=== PATIENT | female | born 1930 | race Caucasian/White ===

== ENCOUNTER 2016-09-16 07:35 | Day surgery (SDC) | payer OTHER ==
[2016-09-16 08:02] VITALS: BMI 21.4
[2016-09-16] MEDS ORDERED: PROPOFOL 20 ML ONE ×2 (08:28)
[2016-09-16 10:27] VITALS: TEMP 97.8
[2016-09-16 12:32] VITALS: BP 148/60; PULSE 73
--- NOTE | 2016-09-17 12:36 | PATH ---
Surgical Pathology Report Patient Name: HARJEET HAGAN [facility]. Rec. #: [id number] /Age/Gender: 1930 (Age: 86) / F Account: [id number] Location: U-ENDOSCOPY Taken: 09/16/2016 Received: 09/16/2016 Reported: 09/17/2016 Physicians: Dao Almanza Specimen(s) Received A: BX EROSION PREPYLORIC B: BX PROXIMAL ANTRAL POSTERIOR WALL 6X8 CM. ULCERATED MASS Clinical History Weight loss, GERD Proximal antral posterior wall 6 x 8 cm ulcerated mass Final Diagnosis A. 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 NO DYSPLASIA OR CARCINOMA IDENTIFIED. Immunostain for H. pylori is negative. B. 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 Immunostain for H. pylori is negative. Comment: Assay for HER-2/edward is pending, and report will follow. This case was discussed with Dr. Antonio Perez and Dr. Rosalino Lozano on September 17, 2016. Electronically Signed Naga Almazan M.D. Addendum Reported: 09/19/2016 Addendum Diagnosis Results of Her2 (IHC) studies performed on block "B" at [place], [place] ([id number]) is as follows: Her2 IHC (EP3 from [employer], formerly known as [id number], using [employer] Polymer Refine detection kit): 0 NEGATIVE Positive and negative controls (internal if applicable) show appropriate results. Naga Almazan M.D. Gross Description A. Received in formalin, labeled "biopsy prepyloric erosion" is a merrill, irregular portion of soft tissue measuring 0.2 cm. in greatest dimension. The specimen is submitted in toto in one cassette. B. Received in formalin, labeled "biopsy proximal antral posterior wall" are 8 merrill, irregular portions of soft tissue averaging 0.2 cm. in greatest dimension. The specimens are submitted in toto in one cassette. 09/16/201609/16/2016
== END 2016-09-16 11:25 | disposition home or self-care (01) ==
LOC: JASU-ENDO 07:35
PROVIDERS: ATTEND Internal Medicine Gastroenterology
PROC: 0DB68ZX Excision of Stomach, Via Natural or Artificial Opening Endoscopic, Diagnostic (ICD-10-PCS; principal; 2016-09-16 08:30)
DX: C16.8 Malignant neoplasm of overlapping sites of stomach (principal)
CPT/HCPCS: 88305-TC; 88342-TC